=== PATIENT | male | born 1945 | race Two or more races ===

== ENCOUNTER 2025-02-19 10:09 | Inpatient (IN) | payer OTHER ==
[~2025-02-19] VITALS: Ht 172.7 cm; Wt 77.1 kg
[2025-02-19] MEDS ORDERED: LASIX20 MG (10:18)
[2025-02-19] MEDS ORDERED: KAPSPARGO SPRIN25 MG (10:18)
[2025-02-19] MEDS ORDERED: AMIODARONE HCL100 MG (10:18)
--- NOTE | 2025-02-19 10:18 | NUR ---
SE RECIBE PTE ALERTA Y ORIENTADO X3 EN AMBULANCIA EN COMPANAI DE FAMILIAR Y PARAMEDICO. EL MISMO REFIERE VENIR DEL HOGAR [facility]IV[facility] POR ULCERA SACRAL POR EL DR. MARTIR CABALLERO. SE OBSERVA PTE CON BERE DEL MESHA. SE MIDEN S/V Y SE UBICA.
[2025-02-19] MEDS ORDERED: PIPERACILLIN/TAZOBACTAM SODIUM 3.375 GM VIAL IV ONE (10:30)
[2025-02-19] MEDS ORDERED: FAMOtidine 10 MG/ML (4ML VIAL) IV ONE (10:30)
--- NOTE | 2025-02-19 10:32 | NUR ---
SE ORIENTA A PACIENTE SOBRE TRATAMIENTO MEDICO QUIEN INDICA ENTENDER Y ACEPTAR. SE COLECTAN MUESTRAS DE LABORATORIO BAJO MEDIDAS ASEPTICAS Y SE REALIZA VENOPUNCION A PACIENTE PATENTE ROGELIO DE EDEMA Y ERITEMA. SE ADMINISTRAN MEDICAMENTOS COCO ORDEN MEDICA Y SE COORDINA XRAY. PACIENTE MANEJADO POR JAMEL PEREZ
[2025-02-19 11:47] LABS: URINE APPEARANCE Clear; URINE BILIRRUBIN Negative (NEGATIVE); URINE BLOOD Negative; URINE COLOR Yellow; URINE KETONE Negative (NEGATIVE); URINE LEUKOCYTE Large; URINE NITRATE Negative; URINE PROTEIN Negative (NEGATIVE); URINE UROBILINOGEN 0.2 E.U./dl
[2025-02-19 11:50] LABS: URINE BACTERIA 8976.5 uL (0.0-1933); URINE EPITHELIAL CELLS 5.6 uL (0.0-38.8); URINE RBC 12.9 uL (0.0-20.8); URINE WBC 218.7 uL (0.0-23.2)
[2025-02-19 11:56] LABS: URINE CAST 0.29 uL (0.0-1.40); URINE GLUCOSE 500 MG/DL (NEGATIVE)
[2025-02-19] MEDS ORDERED: SODIUM HYPOCHLORITE 1OZ TOP SCH (12:28)
[2025-02-19 12:47] LABS: HEMATOCRIT 26.5 % (39.0-48.0); MEAN CELL VOLUME 94.3 fL (80.0-100.00); MEAN CORPUSCULAR HGB CONC 33.3 g/dl (32.0-36.0); RED BLOOD COUNT 2.81 M/uL (4.00-6.00); RED CELL DISTRIBUTION WIDTH 18.1 % (11.5-14.5)
[2025-02-19 12:55] LABS: HEMOGLOBIN 8.8 g/dL (13-16.00); MEAN CORPUSCULAR HEMOGLOBIN 31.3 pg (27.00-32.0); PLATELET COUNT 112 K/uL (150-450)
[2025-02-19 13:00] LABS: ERYTHROCYTE SEDIMENTATION RATE 19 mm/hr
[2025-02-19 13:21] LABS: ALBUMIN 2.3 gm/dL (3.4-5.0); BILIRUBIN TOTAL 0.3 mg/dL (0.3-1.2); CALCIUM 8.7 mg/dL (8.5-10.1); CREATININE SERUM 1.02 mg/dL (0.70-1.30); GFR 70.45; GLOBULINA 3.3 G/DL (2.4-3.5); POTASSIUM 3.57 mEq/L (3.5-5.1); TOTAL PROTEIN 5.6 gm/dL (6.4-8.2)
[2025-02-19 13:22] LABS: C-REACTIVE PROTEIN 1.02 MG/DL (0.00-0.29)
--- NOTE | 2025-02-19 15:16 | NUR ---
PTE CON SONDA URINARIA A GRAVEDAD CON UN EGRESO DE 800ML ORINA DE COLOR AMARILLA SARAH BETH.
[2025-02-19] MEDS ORDERED: VANCOMYCIN HCL 1,000 MG VIAL IV SCH (17:44)
[2025-02-19] MEDS ORDERED: 0.9 % SODIUM CHLORIDE 1,000 ML IV SCH (17:45)
[2025-02-19] MEDS ORDERED: ACETAMINOPHEN 500 MG GEL..CAP PO PRN (17:45)
[2025-02-19] MEDS ORDERED: CEFEPIME HCL 2,000 MG in 0.9 % SODIUM CHLORIDE 100 ML IV SCH (18:30)
[2025-02-19] MEDS ORDERED: CEFEPIME HCL 2,000 MG VIAL ONE (19:33)
[2025-02-19] MEDS ORDERED: VANCOMYCIN HCL 1,000 MG VIAL ONE (19:33)
[2025-02-19 20:05] VITALS: BP 116/60
[2025-02-19 20:17] LABS: INR 0.98; PARTIAL THROMBOPLASTIN TIME 24.5 SECONDS (22.0-34.0); PROTHROMBIN TIME 10.7 SECONDS (9.0-11.5)
[2025-02-19] MEDS ORDERED: DEXTROSE 50 % IN WATER 0.5 G/ML DISP.SYRIN IV PRN (20:30)
[2025-02-19] MEDS ORDERED: INSULIN LISPRO 1,000 UNIT/10 ML UNITS SUBCUTANEO PRN (20:30)
[2025-02-19 20:40] LABS: MAGNESIUM 2.2 mg/dL (1.8-2.4)
[2025-02-19 20:41] LABS: C-REACTIVE PROTEIN 1.04 MG/DL (0.00-0.29)
[2025-02-19] MEDS ORDERED: CLONAZEPAM 0.5 MG TABLET PO SCH (21:00)
[2025-02-19 22:27] VITALS: BP 119/53; O2SAT 97
[2025-02-20 02:37] VITALS: BP 113/73; O2SAT 95
[2025-02-20 08:55] VITALS: BP 121/55
[2025-02-20] MEDS ORDERED: AMINO ACIDS/PROTEIN HYDROLYS 30 ML BLIST.PACK PO SCH (09:00)
[2025-02-20] MEDS ORDERED: FINASTERIDE 5 MG TABLET PO SCH (09:00)
[2025-02-20] MEDS ORDERED: TAMSULOSIN HCL 0.4 MG CAP PO SCH (09:00)
[2025-02-20] MEDS ORDERED: PANTOPRAZOLE SODIUM 40 MG/VIAL VIAL IV SCH (09:00)
[2025-02-20] MEDS ORDERED: APIXABAN 2.5 MG TABLET PO SCH (09:00)
[2025-02-20] MEDS ORDERED: METOPROLOL SUCCINATE 50 MG TAB.SR.24H PO SCH (09:00)
[2025-02-20] MEDS ORDERED: AMIODARONE HCL 200 MG TABLET PO SCH (09:00)
[2025-02-20] MEDS ORDERED: CANDESARTAN CILEXETIL 16 MG TABLET PO SCH (09:00)
[2025-02-20] MEDS ORDERED: IRON FUM,PS/FOLIC/BCOMP,C NO.9 1 CAP CAPSULE PO SCH (09:00)
[2025-02-20] MEDS ORDERED: FUROsemide 20 MG TABLET PO SCH (09:00)
[2025-02-20 16:44] VITALS: BP 123/52; O2SAT 100
[2025-02-20] MEDS ORDERED: DOXAZOSIN MESYLATE 4 MG TABLET PO SCH (17:00)
[2025-02-20] MEDS ORDERED: MEROPENEM 500 MG/VIAL VIAL IV SCH (18:00)
[2025-02-20] MEDS ORDERED: FUROsemide 20 MG/2 ML VIAL IV SCH (18:45)
[2025-02-20] MEDS ORDERED: VANCOMYCIN HCL 1,000 MG VIAL IV SCH (21:00)
[2025-02-21 01:00] VITALS: BP 120/62; O2SAT 98
[2025-02-21 06:50] LABS: HEMATOCRIT 24.3 % (39.0-48.0); MEAN CELL VOLUME 93.2 fL (80.0-100.00); MEAN CORPUSCULAR HEMOGLOBIN 31.5 pg (27.00-32.0); MEAN CORPUSCULAR HGB CONC 33.7 g/dl (32.0-36.0); RED BLOOD COUNT 2.66 M/uL (4.00-6.00)
[2025-02-21 06:51] LABS: HEMOGLOBIN 8.4 g/dL (13-16.00); PLATELET COUNT 118 K/uL (150-450); RED CELL DISTRIBUTION WIDTH 16.3 % (11.5-14.5)
[2025-02-21 07:47] LABS: ALBUMIN 2.1 gm/dL (3.4-5.0); BILIRUBIN TOTAL 0.4 mg/dL (0.3-1.2); CALCIUM 8.5 mg/dL (8.5-10.1); CREATININE SERUM 1.1 mg/dL (0.70-1.30); GFR 64.57; GLOBULINA 2.8 G/DL (2.4-3.5); MAGNESIUM 2.1 mg/dL (1.8-2.4); PHOSPHOROUS 3.2 mg/dL (2.5-4.9); POTASSIUM 3.84 mEq/L (3.5-5.1); TOTAL PROTEIN 4.9 gm/dL (6.4-8.2)
[2025-02-21 07:50] LABS: C-REACTIVE PROTEIN 0.94 MG/DL (0.00-0.29)
[2025-02-21 08:34] VITALS: BP 140/65
[2025-02-21 17:56] VITALS: BP 126/55
[2025-02-22 02:22] VITALS: BP 121/52
[2025-02-22 06:53] LABS: HEMATOCRIT 29.3 % (39.0-48.0); HEMOGLOBIN 9.9 g/dL (13-16.00); MEAN CELL VOLUME 92.2 fL (80.0-100.00); MEAN CORPUSCULAR HEMOGLOBIN 31.1 pg (27.00-32.0); MEAN CORPUSCULAR HGB CONC 33.7 g/dl (32.0-36.0); RED BLOOD COUNT 3.18 M/uL (4.00-6.00); RED CELL DISTRIBUTION WIDTH 18.3 % (11.5-14.5)
[2025-02-22 06:56] LABS: PLATELET COUNT 124 K/uL (150-450)
[2025-02-22 10:53] VITALS: BP 143/72
[2025-02-22 12:44] LABS: FREE TRIODOTIRONINE 0.95 pg/ml (2.18-3.98); T4 FREE 1.19 NG/ML (0.76-1.46); T4 TOTAL 8.19 UG/DL (4.5-12.1)
[2025-02-22 18:28] VITALS: BP 137/59
[2025-02-23 01:03] VITALS: BP 125/57; O2SAT 96
[2025-02-23 06:50] LABS: URINE APPEARANCE Clear; URINE BILIRRUBIN Negative (NEGATIVE); URINE BLOOD NHT; URINE COLOR Yellow; URINE KETONE Negative (NEGATIVE); URINE LEUKOCYTE Moderate; URINE NITRATE Negative; URINE PROTEIN 30 (NEGATIVE); URINE UROBILINOGEN 0.2 E.U./dl
[2025-02-23 06:54] LABS: URINE BACTERIA 48.9 uL (0.0-1933); URINE EPITHELIAL CELLS 7.9 uL (0.0-38.8); URINE WBC 207.9 uL (0.0-23.2)
[2025-02-23 07:02] LABS: URINE CAST 0.88 uL (0.0-1.40); URINE GLUCOSE 100 MG/DL (NEGATIVE)
[2025-02-23 08:07] VITALS: BP 121/67; O2SAT 94
[2025-02-23 08:15] LABS: FERRITIN 104.5 NG/ML (26-388)
[2025-02-23 08:43] LABS: ERYTHROCYTE SEDIMENTATION RATE 18 mm/hr
[2025-02-23] MEDS ORDERED: VITAMIN B COMPLEX 1 EACH PO SCH (09:00)
[2025-02-23 17:32] VITALS: BP 153/80
[2025-02-24 01:27] VITALS: BP 123/52; O2SAT 97
[2025-02-24 08:07] VITALS: BP 138/61; O2SAT 94
[2025-02-24 17:39] VITALS: BP 154/75
[2025-02-25 01:30] VITALS: BP 123/50; O2SAT 96
[2025-02-25 07:29] LABS: T4 TOTAL 8.37 UG/DL (4.5-12.1)
[2025-02-25 07:30] LABS: TSH 6.26 uIU/mL (0.358-3.74)
[2025-02-25 08:34] VITALS: BP 106/59; O2SAT 94
[2025-02-25 11:22] LABS: FOLIC ACID 12.45 ng/ml (4.78-20)
[2025-02-25 14:45] LABS: PLATELET ESTIMATE NORMAL (NORMAL)
[2025-02-25] MEDS ORDERED: KETOROLAC TROMETHAMINE 30 MG VIAL IV PRN (17:15)
[2025-02-25 17:54] VITALS: BP 145/67
[2025-02-26 00:45] VITALS: BP 129/61
[2025-02-26 06:14] LABS: HEMATOCRIT 27.6 % (39.0-48.0); MEAN CELL VOLUME 92.4 fL (80.0-100.00); MEAN CORPUSCULAR HGB CONC 34.1 g/dl (32.0-36.0); RED BLOOD COUNT 2.99 M/uL (4.00-6.00); RED CELL DISTRIBUTION WIDTH 16.7 % (11.5-14.5)
[2025-02-26 06:41] LABS: ALBUMIN 2.1 gm/dL (3.4-5.0); BILIRUBIN TOTAL 0.38 mg/dL (0.3-1.2); C-REACTIVE PROTEIN 2.15 MG/DL (0.00-0.29); CALCIUM 8.1 mg/dL (8.5-10.1); CREATININE SERUM 1.07 mg/dL (0.70-1.30); GFR 66.67; GLOBULINA 2.6 G/DL (2.4-3.5); PHOSPHOROUS 2.2 mg/dL (2.5-4.9); POTASSIUM 3.49 mEq/L (3.5-5.1); TOTAL PROTEIN 4.7 gm/dL (6.4-8.2)
[2025-02-26 06:50] LABS: HEMOGLOBIN 9.4 g/dL (13-16.00); MEAN CORPUSCULAR HEMOGLOBIN 31.4 pg (27.00-32.0); PLATELET COUNT 113 K/uL (150-450)
[2025-02-26 06:59] LABS: ERYTHROCYTE SEDIMENTATION RATE 30 mm/hr
[2025-02-26 08:48] VITALS: BP 154/65
[2025-02-26] MEDS ORDERED: PANTOPRAZOLE SODIUM 40 MG TABLET.DR PO SCH (09:00)
[2025-02-26 13:10] LABS: ob POSITIVE (NEGATIVE)
[2025-02-26 16:00] VITALS: BP 115/48
[2025-02-26 22:24] VITALS: BP 143/73
[2025-02-27 00:43] VITALS: BP 11/58
[2025-02-27 08:54] VITALS: BP 113/60
[2025-02-27 17:40] VITALS: BP 184/88
[2025-02-28 01:17] VITALS: BP 124/56
[2025-02-28 06:23] LABS: HEMATOCRIT 27.2 % (39.0-48.0); MEAN CELL VOLUME 91.9 fL (80.0-100.00); MEAN CORPUSCULAR HEMOGLOBIN 31.4 pg (27.00-32.0); MEAN CORPUSCULAR HGB CONC 34.2 g/dl (32.0-36.0); RED BLOOD COUNT 2.96 M/uL (4.00-6.00); RED CELL DISTRIBUTION WIDTH 16.8 % (11.5-14.5)
[2025-02-28 06:24] LABS: HEMOGLOBIN 9.3 g/dL (13-16.00)
[2025-02-28 06:25] LABS: PLATELET COUNT 128 K/uL (150-450)
[2025-02-28 07:05] LABS: BILIRUBIN TOTAL 0.36 mg/dL (0.3-1.2); CALCIUM 8.6 mg/dL (8.5-10.1); CREATININE SERUM 0.91 mg/dL (0.70-1.30); GFR 80.37; GLOBULINA 2.9 G/DL (2.4-3.5); PHOSPHOROUS 2.5 mg/dL (2.5-4.9); POTASSIUM 3.61 mEq/L (3.5-5.1); TOTAL PROTEIN 4.9 gm/dL (6.4-8.2)
[2025-02-28 08:01] VITALS: BP 124/56
[2025-02-28] MEDS ORDERED: VANCOMYCIN HCL 5 MG/ML REDILUIDO IV SCH (09:00)
[2025-02-28] MEDS ORDERED: SODIUM CHLORIDE 0.45 % 1,000 ML IV SCH (13:15)
[2025-02-28 17:00] VITALS: BP 176/82
[2025-03-01 01:27] VITALS: BP 147/64
[2025-03-01 04:48] LABS: HEMOGLOBIN 9.3 g/dL (13-16.00); MEAN CELL VOLUME 91.7 fL (80.0-100.00); MEAN CORPUSCULAR HEMOGLOBIN 31.4 pg (27.00-32.0); MEAN CORPUSCULAR HGB CONC 34.3 g/dl (32.0-36.0); RED BLOOD COUNT 2.95 M/uL (4.00-6.00); RED CELL DISTRIBUTION WIDTH 16.8 % (11.5-14.5)
[2025-03-01 04:59] LABS: ERYTHROCYTE SEDIMENTATION RATE 39 mm/hr
[2025-03-01 05:01] LABS: PLATELET COUNT 128 K/uL (150-450)
[2025-03-01 05:13] LABS: BILIRUBIN TOTAL 0.44 mg/dL (0.3-1.2); CALCIUM 8.5 mg/dL (8.5-10.1); CREATININE SERUM 1.02 mg/dL (0.70-1.30); GFR 70.45; MAGNESIUM 1.9 mg/dL (1.8-2.4); PHOSPHOROUS 2.1 mg/dL (2.5-4.9); POTASSIUM 3.37 mEq/L (3.5-5.1)
[2025-03-01] MEDS ORDERED: LEVOTHYROXINE SODIUM 25 MCG TABLET PO SCH (06:00)
[2025-03-01 08:07] VITALS: BP 130/60
[2025-03-01 09:07] LABS: a:g ratio 0.9 (0.7-1.7); alpha 1 g 0.2 g/dL (0.0-0.4); alpha 2 0.7 g/dL (0.4-1.0); beta g 0.8 g/dL (0.7-1.3); gamma g 0.7 g/dL (0.4-1.8); globulin t 2.5 g/dL (2.2-3.9); m spike Not Observed g/dL (Not Observed); prot total 4.7 g/dL (6.0-8.5)
[2025-03-01 16:02] VITALS: BP 120/56
[2025-03-02 02:36] VITALS: BP 135/76; O2SAT 91
[2025-03-02 08:55] VITALS: BP 156/66; O2SAT 91
[2025-03-02 16:00] VITALS: BP 152/69; O2SAT 91
[2025-03-02] MEDS ORDERED: LEVALBUTEROL HCL 1.25 MG/3 ML SOLUTION IH STA (16:17)
[2025-03-02] MEDS ORDERED: FUROsemide 20 MG/2 ML VIAL IV STA (16:18)
[2025-03-02 16:30] LABS: ABG PH 7.422 (7.35-7.45); ABG PO2 99.8 mmHg (80-100); BASE EXCESS 1.1 mmol/l; BICARBONATE 25.5 mmol/l (23-25); SaO2 97.9 %; Tco2 26.7 mmol/l
[2025-03-02 16:31] LABS: allen test SATISFACTORY; o2 32 %; puncture site RADIAL RIGHT
[2025-03-02] MEDS ORDERED: LEVALBUTEROL HCL 1.25 MG/3 ML SOLUTION IH SCH (21:00)
[2025-03-03 00:46] VITALS: BP 124/61; O2SAT 96
[2025-03-03 08:37] VITALS: BP 145/66; O2SAT 98
[2025-03-03 16:00] VITALS: BP 123/55; O2SAT 99
[2025-03-04 01:38] VITALS: BP 129/63; O2SAT 90
[2025-03-04 06:48] LABS: ALBUMIN 2.1 gm/dL (3.4-5.0); BILIRUBIN TOTAL 0.35 mg/dL (0.3-1.2); CALCIUM 8.6 mg/dL (8.5-10.1); CREATININE SERUM 1.12 mg/dL (0.70-1.30); GFR 63.24; GLOBULINA 2.9 G/DL (2.4-3.5); POTASSIUM 3.44 mEq/L (3.5-5.1)
[2025-03-04 08:36] VITALS: BP 120/50
[2025-03-04 16:09] VITALS: BP 121/57; O2SAT 91
[2025-03-04] MEDS ORDERED: POTASSIUM CHLORIDE 10 MEQ CAPSULE PO NR (17:30)
[2025-03-05 01:02] VITALS: BP 121/58; O2SAT 96
[2025-03-05 05:08] LABS: HEMATOCRIT 24.9 % (39.0-48.0); MEAN CELL VOLUME 91.3 fL (80.0-100.00); MEAN CORPUSCULAR HEMOGLOBIN 31.1 pg (27.00-32.0); PLATELET COUNT 131 K/uL (150-450); RED BLOOD COUNT 2.73 M/uL (4.00-6.00); RED CELL DISTRIBUTION WIDTH 16.8 % (11.5-14.5)
[2025-03-05 05:09] LABS: HEMOGLOBIN 8.5 g/dL (13-16.00)
[2025-03-05 08:21] VITALS: BP 137/65
[2025-03-05] MEDS ORDERED: FUROsemide 20 MG/2 ML VIAL IV SCH (14:30)
[2025-03-05 16:04] VITALS: BP 129/57; O2SAT 94
[2025-03-05] MEDS ORDERED: BISACODYL 5 MG TABLET.EC PO NR (16:30)
[2025-03-05] MEDS ORDERED: POLYETHYLENE GLYCOL 3350 238 GM POWDER PO NR (17:00)
[2025-03-06 01:00] VITALS: BP 135/65; O2SAT 96
[2025-03-06 03:38] LABS: ob POSITIVE (NEGATIVE)
[2025-03-06] MEDS ORDERED: fentaNYL CITRATE 50 MCG/ML AMPUL IV PUSH ONE (08:30)
[2025-03-06] MEDS ORDERED: MIDAZOLAM HCL 2 MG/2 ML VIAL IV ONE (08:30)
[2025-03-06] MEDS ORDERED: DIPHENHYDRAMINE HCL 50 MG/ML VIAL 1ML IV ONE (08:30)
[2025-03-06 08:33] VITALS: BP 163/69; O2SAT 95
[2025-03-06] MEDS ORDERED: SOD FERRIC GLUC COMPLX/SUCROSE 125 MG in 0.9 % SODIUM CHLORIDE 100 ML IV SCH (09:00)
[2025-03-06 17:48] VITALS: BP 155/80; O2SAT 90
[2025-03-06 20:36] LABS: HEMATOCRIT 34.3 % (39.0-48.0); HEMOGLOBIN 11.6 g/dL (13-16.00); MEAN CELL VOLUME 88.9 fL (80.0-100.00); MEAN CORPUSCULAR HGB CONC 33.7 g/dl (32.0-36.0); PLATELET COUNT 144 K/uL (150-450); RED BLOOD COUNT 3.86 M/uL (4.00-6.00); RED CELL DISTRIBUTION WIDTH 17.6 % (11.5-14.5)
[2025-03-07 01:42] VITALS: BP 128/55
[2025-03-07 08:56] VITALS: BP 143/68; O2SAT 98
[2025-03-07 16:00] VITALS: BP 157/76; O2SAT 98
== END 2025-03-07 20:46 | disposition home or self-care (01) | DRG 580 ==
LOC: EDBD 10:09 → ER 10:09 → MEDI 19:04
PROVIDERS: General Practice; Internal Medicine; Internal Medicine Endocrinology, Diabetes & Metabolism; Internal Medicine Hematology & Oncology; Internal Medicine Infectious Disease; Internal Medicine Nephrology; ADMIT Internal Medicine; ATTEND Internal Medicine
PROC: 0JD70ZZ Extraction of Back Subcutaneous Tissue and Fascia, Open Approach (ICD-10-PCS; principal; 2025-02-20)
PROC: 2W15X6Z Compression of Back using Pressure Dressing (ICD-10-PCS; 2025-02-20)
PROC: 8E0ZXY6 Isolation (ICD-10-PCS; 2025-02-21)
PROC: 30233N1 Transfusion of Nonautologous Red Blood Cells into Peripheral Vein, Percutaneous Approach (ICD-10-PCS; 2025-02-21)
PROC: BR39ZZZ Magnetic Resonance Imaging (MRI) of Lumbar Spine (ICD-10-PCS; 2025-02-21)
PROC: 0JD70ZZ Extraction of Back Subcutaneous Tissue and Fascia, Open Approach (ICD-10-PCS; 2025-02-25)
PROC: 0JD70ZZ Extraction of Back Subcutaneous Tissue and Fascia, Open Approach (ICD-10-PCS; 2025-02-28)
PROC: 0JD70ZZ Extraction of Back Subcutaneous Tissue and Fascia, Open Approach (ICD-10-PCS; 2025-03-06)
PROC: 0DJD8ZZ Inspection of Lower Intestinal Tract, Via Natural or Artificial Opening Endoscopic (ICD-10-PCS; 2025-03-06)
DX: L89.154 Pressure ulcer of sacral region, stage 4 (principal); D61.818 Other pancytopenia; K92.2 Gastrointestinal hemorrhage, unspecified; N39.0 Urinary tract infection, site not specified; E87.0 Hyperosmolality and hypernatremia; L89.894 Pressure ulcer of other site, stage 4; L08.9 Local infection of the skin and subcutaneous tissue, unspecified; B96.5 Pseudomonas (aeruginosa) (mallei) (pseudomallei) as the cause of diseases classified elsewhere; B95.2 Enterococcus as the cause of diseases classified elsewhere; E78.5 Hyperlipidemia, unspecified; I48.91 Unspecified atrial fibrillation; N40.0 Benign prostatic hyperplasia without lower urinary tract symptoms; Z95.0 Presence of cardiac pacemaker; B96.89 Other specified bacterial agents as the cause of diseases classified elsewhere; I25.10 Atherosclerotic heart disease of native coronary artery without angina pectoris; I11.9 Hypertensive heart disease without heart failure; D64.9 Anemia, unspecified; E03.9 Hypothyroidism, unspecified; D69.6 Thrombocytopenia, unspecified; I49.8 Other specified cardiac arrhythmias; K62.1 Rectal polyp
CPT/HCPCS: 72148